=== PATIENT | male | born 1980 | race Caucasian/White ===

== ENCOUNTER 2018-09-05 05:52 | Day surgery (SDC) | payer OTHER ==
[2018-09-03 11:47] VITALS: BMI 26.6
[2018-09-05] MEDS ORDERED: BUPIVACAINE HCL 0.25% 125 MG/50 ML VIAL ONE (07:25)
[2018-09-05] MEDS ORDERED: MIDAZOLAM HCL 2 MG/2 ML SINGLE DOSE VIAL ONE ×2 (07:26→07:27)
[2018-09-05] MEDS ORDERED: ceFAZolin SODIUM 1 GM VIAL ONE (07:48)
[2018-09-05] MEDS ORDERED: LIDOCAINE HCL/PF 2% SDV 5ML VIAL ONE (07:50)
[2018-09-05] MEDS ORDERED: ONDANSETRON 4 MG/2 ML VIAL ONE ×2 (07:50→09:57)
[2018-09-05] MEDS ORDERED: DEXAMETHASONE SOD PHOSPHATE 4 MG/1 ML VIAL ONE (07:50)
[2018-09-05] MEDS ORDERED: PROPOFOL 20 ML ONE ×2 (07:52)
[2018-09-05] MEDS ORDERED: oxyCODONE HCL 5 MG TABLET PO PRN (08:31)
[2018-09-05] MEDS ORDERED: DESFLURANE GAS 240 ML BOTTLE IH ONE (08:31)
[2018-09-05] MEDS ORDERED: LACTATED RINGERS SOLUTION 1,000 ML IV SCH (08:45)
[2018-09-05] MEDS ORDERED: KETOROLAC TROMETHAMINE 30 MG/1 ML VIAL ONE (08:51)
[2018-09-05] MEDS ORDERED: BUPIVACAINE HCL/PF 0.25% (2.5MG/ML) 10 ML VIAL IJ ONE (09:10)
[2018-09-05] MEDS ORDERED: MEPERIDINE HCL CARPU-JECT 25 MG/1 ML DISP.SYRIN IVPUSH ONE (09:29)
[2018-09-05 09:43] VITALS: TEMP 98
[2018-09-05] MEDS: ONDANSETRON 4 MG/2 ML VIAL IVPUSH PRN ×2 (09:56→09:58)
[2018-09-05 11:39] VITALS: BP 129/87; PULSE 74
--- NOTE | 2018-09-05 14:16 | OP ---
DATE OF OPERATION: 09/05/2018 SURGEON: Radha Way MD [employer] RIGGER: YENIFER Bernal PREOPERATIVE DIAGNOSIS: Left distal biceps rupture. POSTOPERATIVE DIAGNOSIS: Left distal biceps rupture. PROCEDURE: Repair and reinsertion of left distal biceps. FINDINGS: Avulsed biceps with retraction to the biceps muscle 10 cm proximal to the insertion. DESCRIPTION OF PROCEDURE: Informed consent was obtained. The patient was taken to the operating room where the left upper extremity was prepped and draped in sterile fashion. Tourniquet was placed to the upper arm and inflated to 250 mmHg. Horizontal incision was made 3 cm distal to the elbow crease along the volar surface. The fascial sheath was incised. There was noted to be thickened scar tissue, and the biceps tendon was retrieved. Two No. 2 FiberWires were interlocked using a Berry interlocking stitch on the biceps tendon after trimming of the scar tissue. This was tied into the toggle lock biceps system. Soft tissue was removed, and the radial neck at the site of the biceps insertion was cleared. Toggle lock system allowed for passage of guidewire followed by 2 reamers. The toggle lock device was inserted through the volar and dorsal cortexes and then locked in a 90-degree position. The tendon then was brought into the reamed bone allowing the tendon to be inside the bleeding bone. The wound was irrigated with a copious amount of irrigation in multiple portions of the procedure. The tourniquet was released. There was no evidence of active bleeding. The wound was irrigated once again, closed with 2-0 Vicryl and 3-0 Prolene. Sterile dressing was placed. The patient was transferred to recovery without complication. The PA listed above was present and assisted at surgery. Their presence was absolutely medically necessary for the completion of the procedure. They helped hold the arthroscopy, pass instruments (and implants when indicated) and the procedure could not have been completed without their assistance. RADHA WAY M.D. [id number]
== END 2018-09-05 11:30 | disposition home or self-care (01) ==
LOC: FASU 05:52
PROVIDERS: ATTEND Orthopaedic Surgery
PROC: 0LM40ZZ Reattachment of Left Upper Arm Tendon, Open Approach (ICD-10-PCS; principal; 2018-09-05 07:30)
DX: M66.822 Spontaneous rupture of other tendons, left upper arm (principal)
CPT/HCPCS: 94760